=== PATIENT | female | born 2005 | race Caucasian/White ===

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

== ENCOUNTER → 2023-06-26 | Outpatient (CLI) | payer MEDICAID, OTHER ==
[2023-06-26 15:55] LABS: HEMATOCRIT 38.3 % (36.0-47.0); HEMOGLOBIN 13.1 g/dl (12.0-15.5); MEAN CORPUSCULAR HGB CONC 34.2 g/dl (32.0-36.5); MEAN CORPUSCULAR VOLUME 84.9 fl (80.0-96.0); PLATELET COUNT, AUTOMATED 286 10^3/uL (150-450); RED BLOOD COUNT 4.51 10^6/uL (4.00-5.40); WHITE BLOOD COUNT 9.3 10^3/uL (4.0-10.0)
[2023-06-26 16:52] LABS: HIV 1&2 SCREEN NEGATIVE (NEGATIVE)
[2023-06-26 17:00] LABS: HEPATITIS C VIRUS ABY INDEX 0.06 INDEX (<0.8)
[2023-06-26 17:31] LABS: GC DNA AMPLIFICATION NEGATIVE (NEGATIVE)
== END ==
LOC: M PLALAB 14:34
PROVIDERS: ATTEND Advanced Practice Midwife
DX: Z34.91 Encounter for supervision of normal pregnancy, unspecified, first trimester (principal)

== ENCOUNTER → 2023-08-17 | Outpatient (CLI) | payer OTHER | LOC: M WHC 14:28 | PROVIDERS: ATTEND Advanced Practice Midwife | DX: O99.342 Other mental disorders complicating pregnancy, second trimester (principal); Z3A.19 19 weeks gestation of pregnancy; F32.A Depression, unspecified ==

== ENCOUNTER → 2023-09-14 | Outpatient (CLI) | payer OTHER | LOC: M WHC 14:38 | PROVIDERS: ATTEND Obstetrics & Gynecology | DX: Z36.2 Encounter for other antenatal screening follow-up (principal) ==

== ENCOUNTER → 2023-09-19 | Outpatient (CLI) | payer OTHER | LOC: M PLALAB 13:47 | PROVIDERS: ATTEND Obstetrics & Gynecology | DX: O36.5990 Maternal care for other known or suspected poor fetal growth, unspecified trimester, not applicable or unspecified (principal) ==

== ENCOUNTER → 2023-09-21 | Outpatient (CLI) | payer OTHER | LOC: M WHC 14:02 | PROVIDERS: ATTEND Obstetrics & Gynecology | DX: O36.5990 Maternal care for other known or suspected poor fetal growth, unspecified trimester, not applicable or unspecified (principal); Z3A.25 25 weeks gestation of pregnancy ==

== ENCOUNTER → 2023-09-28 | Outpatient (CLI) | payer OTHER | LOC: M WHC 10:31 | PROVIDERS: ATTEND Obstetrics & Gynecology | DX: O36.5920 Maternal care for other known or suspected poor fetal growth, second trimester, not applicable or unspecified (principal); Z3A.26 26 weeks gestation of pregnancy ==

== ENCOUNTER → 2023-10-05 | Outpatient (CLI) | payer OTHER ==
[2023-10-05 17:53] LABS: HEMATOCRIT 35.3 % (36.0-47.0); MEAN CORPUSCULAR HEMOGLOBIN 30.5 pg (27.0-33.0); MEAN CORPUSCULAR VOLUME 89.6 fl (80.0-96.0); PLATELET COUNT, AUTOMATED 204 10^3/uL (150-450); RED BLOOD COUNT 3.94 10^6/uL (4.00-5.40); WHITE BLOOD COUNT 11.3 10^3/uL (4.0-10.0)
== END ==
LOC: M PLALAB 14:02
PROVIDERS: ATTEND Advanced Practice Midwife
DX: Z34.82 Encounter for supervision of other normal pregnancy, second trimester (principal)

== ENCOUNTER → 2023-10-05 | Outpatient (CLI) | payer OTHER | LOC: M WHC 14:00 | PROVIDERS: ATTEND Obstetrics & Gynecology | DX: O36.5930 Maternal care for other known or suspected poor fetal growth, third trimester, not applicable or unspecified (principal); Z3A.27 27 weeks gestation of pregnancy ==

== ENCOUNTER → 2023-10-15 | Outpatient (CLI) | payer OTHER | LOC: M WHC 08:17 | PROVIDERS: ATTEND Obstetrics & Gynecology | DX: O36.5990 Maternal care for other known or suspected poor fetal growth, unspecified trimester, not applicable or unspecified (principal) ==

== ENCOUNTER → 2023-10-30 | Outpatient (CLI) | payer OTHER | LOC: M WHC 13:01 | PROVIDERS: ATTEND Obstetrics & Gynecology | DX: O36.5990 Maternal care for other known or suspected poor fetal growth, unspecified trimester, not applicable or unspecified (principal) ==

== ENCOUNTER → 2023-11-06 | Outpatient (CLI) | payer OTHER | LOC: M WHC 11:08 | PROVIDERS: ATTEND Obstetrics & Gynecology | DX: O36.5990 Maternal care for other known or suspected poor fetal growth, unspecified trimester, not applicable or unspecified (principal) ==

== ENCOUNTER → 2023-11-20 | Outpatient (CLI) | payer OTHER | LOC: M WHC 10:41 | PROVIDERS: ATTEND Obstetrics & Gynecology | DX: O36.5930 Maternal care for other known or suspected poor fetal growth, third trimester, not applicable or unspecified (principal); Z3A.34 34 weeks gestation of pregnancy ==

== ENCOUNTER → 2023-11-27 | Outpatient (CLI) | payer OTHER | LOC: M WHC 11:05 | PROVIDERS: ATTEND Obstetrics & Gynecology | DX: O36.5990 Maternal care for other known or suspected poor fetal growth, unspecified trimester, not applicable or unspecified (principal) ==

== ENCOUNTER → 2023-11-28 | Outpatient (REF) | payer OTHER | LOC: M SFHCWAGY 12:16 | PROVIDERS: ATTEND Nurse Practitioner Women's Health | DX: Z36.85 Encounter for antenatal screening for Streptococcus B (principal); Z3A.35 35 weeks gestation of pregnancy ==

== ENCOUNTER → 2023-12-04 | Outpatient (CLI) | payer OTHER | LOC: M WHC 10:25 | PROVIDERS: ATTEND Obstetrics & Gynecology | DX: O36.5990 Maternal care for other known or suspected poor fetal growth, unspecified trimester, not applicable or unspecified (principal) ==

== ENCOUNTER → 2023-12-11 | Outpatient (CLI) | payer OTHER | LOC: M RAD 10:28 | PROVIDERS: ATTEND Obstetrics & Gynecology | DX: O36.5990 Maternal care for other known or suspected poor fetal growth, unspecified trimester, not applicable or unspecified (principal) ==

== ENCOUNTER → 2023-12-18 | Outpatient (CLI) | payer OTHER | LOC: M WHC 11:33 | PROVIDERS: ATTEND Obstetrics & Gynecology | DX: O36.5993 Maternal care for other known or suspected poor fetal growth, unspecified trimester, fetus 3 (principal); Z3A.38 38 weeks gestation of pregnancy ==

== ENCOUNTER 2023-12-22 12:58 | Inpatient (IN) | payer OTHER ==
[~2023-12-22] VITALS: Ht 157.5 cm; Wt 95.8 kg
[2023-12-22] MEDS ORDERED: OXYTOCIN DRIP 30 UNITS in IV 1 EA IV PRN (13:25)
[2023-12-22] MEDS ORDERED: LIDOCAINE 1% MDV 20ML VIAL INFIL PRN (13:25)
[2023-12-22 13:34] VITALS: BP 117/72
[2023-12-22 14:01] VITALS: BP 114/57
[2023-12-22] MEDS: miSOPROStol 50MCG 1/2 TABLET SL SCH (14:01)
[2023-12-22 14:16] LABS: HEMATOCRIT 34.2 % (36.0-47.0); HEMOGLOBIN 11.6 g/dl (12.0-15.5); MEAN CORPUSCULAR HEMOGLOBIN 29.6 pg (27.0-33.0); MEAN CORPUSCULAR HGB CONC 33.9 g/dl (32.0-36.5); MEAN CORPUSCULAR VOLUME 87.2 fl (80.0-96.0); PLATELET COUNT, AUTOMATED 243 10^3/uL (150-450); RED BLOOD COUNT 3.92 10^6/uL (4.00-5.40); WHITE BLOOD COUNT 8.3 10^3/uL (4.0-10.0)
[2023-12-22 15:04] VITALS: BP 109/56
[2023-12-22 15:21] LABS: HEPATITIS C VIRUS ABY INDEX < 0.02 INDEX (<0.8)
[2023-12-22 16:07] VITALS: BP 118/56
[2023-12-22 18:01] VITALS: BP 119/64
[2023-12-22] MEDS ORDERED: LR 1,000 ML IV SCH (22:55)
[2023-12-22] MEDS ORDERED: BUTORPHANOL 2 MG/ML 1ML VIAL IV ONE (22:55)
[2023-12-22] MEDS ORDERED: PROMETHAZINE 25MG/ML 1ML VIAL IV ONE (22:55)
[2023-12-22] MEDS ORDERED: OXYTOCIN DRIP 30 UNITS in IV 1 EA IV SCH (22:55)
[2023-12-23] MEDS ORDERED: NALOXONE INJ 0.4MG/1ML VIAL IV PRN (02:20)
[2023-12-23] MEDS ORDERED: ONDANSETRON 4MG 2ML VIAL IV PRN (02:20)
[2023-12-23] MEDS ORDERED: diphenhydrAMINE 50MG/ML VIAL IV PRN (02:20)
[2023-12-23] MEDS ORDERED: EPIDURAL/PCA KEYS XX PRN (02:20)
[2023-12-23] MEDS ORDERED: LR 500 ML IV PRN (02:20)
[2023-12-23] MEDS ORDERED: ePHEDrine SULFATE 25 MG/5 ML(5MG/ML) SYRINGE IVP PRN (02:20)
[2023-12-23] MEDS: FENTANYL/ROPIVACAINE/NACL BAG 100 ML EPIDURAL SCH (03:18)
[2023-12-23] MEDS ORDERED: DOCUSATE SODIUM 100MG CAPSULE PO PRN (03:20)
[2023-12-23] MEDS ORDERED: ACETAMINOPHEN TAB 650MG DOSE (2X325MG) PO PRN (03:20)
[2023-12-23] MEDS ORDERED: METHYLERGONOVINE MALEATE 0.2 MG TAB PO PRN (03:20)
[2023-12-23] MEDS ORDERED: ACETAMINOPHEN 500 MG TAB PO PRN (03:20)
[2023-12-23] MEDS ORDERED: DIBUCAINE 1% OINTMENT 30GM TOP PRN (03:20)
[2023-12-23] MEDS ORDERED: RHO(D) IMMUNE GLOBULIN/MALTOSE 500MCG(2500IU)/2.2ML VIAL (WINRHO) IM SCH (03:20)
[2023-12-23 07:30] VITALS: BP 119/64; TEMP 97
[2023-12-23] MEDS: PRENATAL VITAMINS CHEWABLE TABLET PO SCH (10:04)
[2023-12-23] MEDS: IBUPROFEN 800 MG TAB PO PRN (10:09)
[2023-12-23 18:00] VITALS: BP 111/63; O2SAT 100
[2023-12-24 06:01] VITALS: BP 109/59; O2SAT 97
[2023-12-24] MEDS: IBUPROFEN 600MG TAB PO PRN (07:52)
[2023-12-24] MEDS: MEASLES,MUMPS,RUBELLA VACCINE INJ (MMR-II) SC.IMMUN ONE (09:04)
[2023-12-24 17:50] VITALS: BP 123/68; O2SAT 96
[2023-12-24] MEDS ORDERED: IBUP80TA PO (18:07)
[2023-12-24] MEDS ORDERED: ACET-683 PO (18:07)
== END 2023-12-24 18:45 | disposition home or self-care (01) | DRG 560 ==
LOC: M LDI 12:58 → M OBS 12-23 05:10
PROVIDERS: ADMIT Specialist; ATTEND Specialist
PROC: 10E0XZZ Delivery of Products of Conception, External Approach (ICD-10-PCS; principal; 2023-12-22)
PROC: 3E0P7GC Introduction of Other Therapeutic Substance into Female Reproductive, Via Natural or Artificial Opening (ICD-10-PCS; 2023-12-22)
DX: O36.5930 Maternal care for other known or suspected poor fetal growth, third trimester, not applicable or unspecified (principal); F17.210 Nicotine dependence, cigarettes, uncomplicated; Z3A.38 38 weeks gestation of pregnancy; O99.334 Smoking (tobacco) complicating childbirth; O69.81X0 Labor and delivery complicated by cord around neck, without compression, not applicable or unspecified; Z37.0 Single live birth

== ENCOUNTER 2024-02-12 03:12 | Emergency (ER) | payer MEDICAID, OTHER ==
[~2024-02-12] VITALS: Ht 154.9 cm; Wt 86.4 kg
[~2024-02-12 03:12] MED LIST changes: +ACET-683 PO; +IBUP80TA PO
[2024-02-12 03:39] LABS: BASO % 0.2 % (0.0-1.0); EOS # 0.2 10^3/uL (0.0-0.5); EOS % 1.8 % (0.0-3.0); HEMATOCRIT 38.4 % (36.0-47.0); HEMOGLOBIN 12.8 g/dl (12.0-15.5); LYMPH # 3.3 10^3/uL (1.5-5.0); LYMPH % 31.8 % (24.0-44.0); MEAN CORPUSCULAR HGB CONC 33.3 g/dl (32.0-36.5); MEAN CORPUSCULAR VOLUME 86.9 fl (80.0-96.0); MONO # 0.9 10^3/uL (0.0-0.8); MONO % 8.3 % (2.0-8.0); NEUTROPHILS % 57.4 % (36.0-66.0); PLATELET COUNT, AUTOMATED 297 10^3/uL (150-450); RED BLOOD COUNT 4.42 10^6/uL (4.00-5.40); WHITE BLOOD COUNT 10.4 10^3/uL (4.0-10.0)
[2024-02-12 04:11] LABS: LIPASE 29 U/L (12-53)
[2024-02-12 04:12] LABS: HCG, SERUM QUALITATIVE NEGATIVE (NEGATIVE)
[2024-02-12 04:13] LABS: ALBUMIN 3.5 G/DL (3.2-5.2); ALKALINE PHOSPHATASE 81 U/L (35-104); ALT/SGPT 76 U/L (7.0-40); AST/SGOT 55 U/L (<34); BILIRUBIN,DIRECT 0.1 MG/DL (<0.4); BILIRUBIN,TOTAL 0.4 MG/DL (0.3-1.2); BLOOD UREA NITROGEN 12 MG/DL (9-23); CALCIUM LEVEL 9.1 MG/DL (8.5-10.1); CARBON DIOXIDE LEVEL 26 MMOL/L (20-31); CHLORIDE LEVEL 104 MMOL/L (98-107); CREATININE FOR GFR 0.69 MG/DL (0.55-1.30); GLUCOSE, FASTING 131 MG/DL (60-100); POTASSIUM SERUM 4.4 MMOL/L (3.5-5.1); SODIUM LEVEL 137 MMOL/L (136-145); TOTAL PROTEIN 7.2 G/DL (5.7-8.2)
[2024-02-12] MEDS ORDERED: KETOROLAC 30 MG/ML 1ML VIAL IV ONE (04:20)
[2024-02-12] MEDS: FAMOTIDINE 20MG/2ML VIAL IVP ONE (04:26)
[2024-02-12] MEDS: ONDANSETRON 4MG 2ML VIAL IV ONE (04:26)
[2024-02-12] MEDS: MORPHINE 2 MG/ML 1ML VIAL IV ONE (04:30)
[2024-02-12 10:39] LABS: BASO % 0.3 % (0.0-1.0); EOS # 0.1 10^3/uL (0.0-0.5); EOS % 1.3 % (0.0-3.0); LYMPH # 2.2 10^3/uL (1.5-5.0); LYMPH % 29.6 % (24.0-44.0); MONO # 0.7 10^3/uL (0.0-0.8); MONO % 9.2 % (2.0-8.0); NEUTROPHILS # 4.4 10^3/uL (1.5-8.5); NEUTROPHILS % 59.3 % (36.0-66.0); WHITE BLOOD COUNT 7.4 10^3/uL (4.0-10.0)
[2024-02-12 11:13] LABS: ALBUMIN 3.1 G/DL (3.2-5.2); BILIRUBIN,DIRECT 0.2 MG/DL (<0.4); BILIRUBIN,TOTAL 0.5 MG/DL (0.3-1.2); TOTAL PROTEIN 6.5 G/DL (5.7-8.2)
[2024-02-12 12:15] VITALS: BP 109/63
[2024-02-12 12:17] VITALS: TEMP 96.9; O2SAT 98
== END 2024-02-12 12:27 | disposition home or self-care (01) ==
LOC: M ED 03:12 → EDBD 03:12 → M ED 12:27
DX: K80.66 Calculus of gallbladder and bile duct with acute and chronic cholecystitis without obstruction (principal); Z79.1 Long term (current) use of non-steroidal anti-inflammatories (NSAID); Z79.810 Long term (current) use of selective estrogen receptor modulators (SERMs)
CPT/HCPCS: 74181; 76705; 80048; 80076; 83690; 84703; 85025; 96374; 96375; 99285; J2405; S0028

== ENCOUNTER 2024-12-28 14:19 | Inpatient (IN) | payer OTHER ==
[~2024-12-28] VITALS: Ht 154.9 cm; Wt 60.5 kg
[2024-12-28] MEDS ORDERED: ETON68IM SC (14:32)
[2024-12-28] MEDS: NS (Normal Saline) 0.9% 1,000 ML IV ONE (15:05)
[2024-12-28 15:07] LABS: BASO # 0.0 10^3/uL (0.0-0.2); BASO % 0.3 % (0.0-1.0); EOS # 0.3 10^3/uL (0.0-0.5); EOS % 2.3 % (0.0-3.0); LYMPH # 2.9 10^3/uL (1.5-5.0); LYMPH % 23.9 % (24.0-44.0); MONO # 0.9 10^3/uL (0.0-0.8); MONO % 7.8 % (2.0-8.0); NEUTROPHILS # 7.8 10^3/uL (1.5-8.5); NEUTROPHILS % 65.3 % (36.0-66.0); PLATELET COUNT, AUTOMATED 304 10^3/uL (150-450)
[2024-12-28 15:32] LABS: CPK CREATINE PHOSPHOKINASE 52 U/L (34-145)
[2024-12-28 15:33] LABS: ALT/SGPT 12 U/L (7.0-40); AST/SGOT 13 U/L (<34); CALCIUM LEVEL 9.0 MG/DL (8.5-10.1); CARBON DIOXIDE LEVEL 24 MMOL/L (20-31); CHLORIDE LEVEL 109 MMOL/L (98-107); CREATININE FOR GFR 0.65 MG/DL (0.55-1.30); GLOMERULAR FILTRATION RATE > 90.0 (>60); POTASSIUM SERUM 3.6 MMOL/L (3.5-5.1); SALICYLATE LEVEL < 3.0 MG/DL (<30); SODIUM LEVEL 143 MMOL/L (136-145)
[2024-12-28 15:34] LABS: ETHYL ALCOHOL (ETHANOL) < 0.003 % (0.000-0.010)
[2024-12-28 15:41] LABS: HCG, SERUM QUALITATIVE NEGATIVE (NEGATIVE)
[2024-12-28 20:59] LABS: BARBITURATES URINE NEGATIVE (NEGATIVE); BENZODIAZEPINES URINE NEGATIVE (NEGATIVE); CANNABINOIDS URINE NEGATIVE (NEGATIVE); COCAINE METABOLITE URINE NEGATIVE (NEGATIVE); METHADONE URINE NEGATIVE (NEGATIVE); OPIATES URINE NEGATIVE (NEGATIVE); PHENCYCLIDINE URINE NEGATIVE (NEGATIVE)
[2024-12-28 21:03] LABS: AMPHETAMINES LEVEL URINE POSITIVE (NEGATIVE)
[2024-12-29] MEDS ORDERED: HOME MED LIST COMPLETE! XX SCH (12:05)
[2024-12-29] MEDS ORDERED: MAALOX 30 ML SUSP *UDC PO PRN (12:15)
[2024-12-29] MEDS ORDERED: ONDANSETRON 4MG ORAL DISINTEGRATING TAB PO PRN (12:15)
[2024-12-29] MEDS ORDERED: LOPERAMIDE 2 MG CAPLET PO PRN (12:15)
[2024-12-29] MEDS ORDERED: MOM 30 ML SUSPENSION UDC PO PRN (12:15)
[2024-12-29] MEDS ORDERED: IBUPROFEN 400 MG TAB PO PRN (12:15)
[2024-12-30 06:32] VITALS: BP 107/73; TEMP 97.5; O2SAT 99
[2024-12-30 15:31] VITALS: BP 112/76; TEMP 97.8; O2SAT 99
[2024-12-30] MEDS: traZODone 50 MG TAB PO PRN (20:11)
[2024-12-31 06:33] VITALS: BP 122/59; TEMP 97.6; O2SAT 98
[2024-12-31 08:22] LABS: CHOLESTEROL LEVEL 124.0 MG/DL (<200); CHOLESTEROL RISK RATIO 3.28 (<5); LDL CHOLESTEROL 69.3 MG/DL (<100); NON-HDL-C 86.3 MG/DL; TRIGLYCERIDES LEVEL 85.0 MG/DL (<150)
[2024-12-31] MEDS: SERTRALINE HCL 50 MG TAB PO SCH (08:23)
[2024-12-31 15:30] VITALS: BP 109/70; TEMP 97; O2SAT 100
[2025-01-01 06:31] VITALS: BP 115/59; TEMP 98.4; O2SAT 100
[2025-01-01 15:34] VITALS: BP 112/72; TEMP 98; O2SAT 99
[2025-01-01] MEDS: ACETAMINOPHEN 325 MG TAB PO PRN (18:25)
[2025-01-02 06:38] VITALS: BP 101/57; TEMP 97.4; O2SAT 98
[2025-01-02] MEDS ORDERED: TRAZ-252 PO (09:10)
[2025-01-02] MEDS ORDERED: ABIL1TAB11 PO (09:10)
[2025-01-02] MEDS ORDERED: SERT50TA29 PO (09:10)
== END 2025-01-02 11:20 | disposition home or self-care (01) | DRG 754 ==
LOC: M ED 14:19 → M ED INP 12-29 12:15 → M PSY 12-29 15:22
PROVIDERS: ADMIT General Practice; ATTEND Psychiatry & Neurology Psychiatry
DX: F32.A Depression, unspecified (principal); F15.14 Other stimulant abuse with stimulant-induced mood disorder; Z81.8 Family history of other mental and behavioral disorders; Z81.3 Family history of other psychoactive substance abuse and dependence; Z62.811 Personal history of psychological abuse in childhood; Z91.51 Personal history of suicidal behavior; J45.909 Unspecified asthma, uncomplicated; Z63.32 Other absence of family member

== ENCOUNTER 2025-01-26 03:01 | Emergency (ER) | payer MEDICAID, OTHER ==
[~2025-01-26] VITALS: Ht 154.9 cm; Wt 63.6 kg
[~2025-01-26 03:01] MED LIST changes: +ABIL1TAB11 PO; +ETON68IM SC; +SERT50TA29 PO; +TRAZ-252 PO
[2025-01-26 03:03] VITALS: BP 128/77; TEMP 98.4; O2SAT 98
== END 2025-01-26 04:20 | disposition left against medical advice (07) ==
LOC: M ED 03:01
DX: Z53.21 Procedure and treatment not carried out due to patient leaving prior to being seen by health care provider (principal)